=== PATIENT | female | born 1955 | race Caucasian/White ===

== ENCOUNTER 2024-08-24 16:45 | Day surgery (SDC) | payer BC, OTHER, SELFPAY ==
[2024-08-24 16:46] VITALS: BMI 27.1
[2024-08-24 17:35] VITALS: BP 132/83; PULSE 140; RESP 16; TEMP 37.8; O2SAT 95; BMI 26.3
--- NOTE | 2024-08-24 17:41 | EKG_ITS ---
[facility] Test Date: 2024-08-24 Pat Name: VENECIA ALVAREZ Department: Room: - Gender: Female Rigger: : 1955 Requested By: Mini Vazquez ([facility]) Kirsty Order Number: [id number] Reading MD: Mini Vazquez ([facility]) Kirsty Measurements Intervals [place] Rate: 123 P: 111 LA: 128 QRS: 26 QRSD: 80 T: 134 QT: 295 QTc: 424 Interpretive Statements SINUS TACHYCARDIA POSSIBLE ANTERIOR MYOCARDIAL INFARCTION , PROBABLY OLD [30 ms Q WAVE IN V3/V4, OR R < 0.2 mV IN V4] ABNORMAL RHYTHM ECG No previous ECG available for comparison /store/S0/[id number]/ecg/[id number].pdf
--- NOTE | 2024-08-24 17:42 | XR_ITS ---
Examination: Abdomen sonogram, Limited Date and time of exam: August 24, 2024 1854 hours INDICATIONS: Right upper abdominal pain and fever beginning 3 days ago Technique: Real-time campoverde scale transabdominal sonographic images of the upper abdomen obtained. Findings: Multiple gallstones Gallbladder wall 1.1 cm with edema Common bile duct 0.6 cm Pancreatic head 2.5 cm Liver 13.8 cm fatty infiltration Normal hepatopedal portal venous flow Patent IVC IMPRESSION: Cholelithiasis, acute cholecystitis, consider HIDA scan or MRCP follow-up
--- NOTE | 2024-08-24 17:43 | PD.EDRME ---
Rapid Medical Screening Exam RME Arrival date/time: 08/24/24 16:45 68-year-old female presents to the emergency department with complaints of right upper quadrant abdominal pain since Wednesday. +fever today. I have greeted and performed a focused initial assessment of this patient. Initial appropriate labs ordered at this time. A comprehensive ED assessment and evaluation of the patient and analysis of all test and completion of medical decision making process will be conducted by additional ED provider. Chief Complaint: Abdominal Pain Time Seen by Provider: 08/24/24 17:23 Vital signs: Vital Signs Temperature 100.0 F 08/24/24 17:35 Pulse Rate 140 H 08/24/24 17:35 Respiratory Rate 16 08/24/24 17:35 Blood Pressure 132/83 H 08/24/24 17:35 Pulse Oximetry (%) 95 08/24/24 17:35 Oxygen Delivery Method Room Air 08/24/24 17:35
[2024-08-24 18:10] VITALS: TEMP 38.8
[2024-08-24 18:21] LABS: Lactate (Lactic Acid) 1.4 mMol/L (0.4-2.0)
[2024-08-24 18:28] LABS: Basophils # (Auto) 0.1 Thou/mm3 (0.0-0.2); Basophils % (Auto) 0 % (0-2.5); Eosinophils # (Auto) 0.1 Thou/mm3 (0.0-0.5); Eosinophils % (Auto) 0 % (0-10); Hemoglobin 14.2 g/dL (12.0-16.0); Immature Granulocytes % (Auto) 1 % (0-0); Immature Granulocytes Auto 0.09 Thou/mm3 (0.00-0.00); Lymphocytes # (Auto) 1.3 Thou/mm3 (1.0-4.8); Lymphocytes % (Auto) 7 % (10-50); Mean Corpuscular HGB Conc 33.8 g/dl (31.0-37.0); Mean Corpuscular Hemoglobin 30.3 pg (25.0-35.0); Mean Corpuscular Volume 90 fL (80-100); Monocytes # (Auto) 1.1 Thou/mm3 (0.0-0.8); Monocytes % (Auto) 6 % (0-12); Neutrophils # (Auto) 15.4 Thou/mm3 (1.8-7.7); Neutrophils % (Auto) 86 % (37-80); Nucleated Red Blood Cell % 0 /100 WBC (0); Platelet Count 198 Thou/mm3 (140-440); RDW Standard Deviation 44.9 fL (36.4-46.3); Red Blood Count 4.68 Miln/mm3 (4.00-5.20)
[2024-08-24 19:03] LABS: Alanine Aminotransferase 153 U/L (10-49); Albumin, Serum 4.8 gm/dL (3.4-4.8); Albumin/Globulin Ratio 1.5 (1.2-2.2); Alkaline Phosphatase 125 U/L (46-116); Anion Gap 13 (7-16); Aspartate Amino Transferase 87 U/L (0-34); BUN/Creatinine Ratio 15 Ratio (12-20); Bilirubin,Total 1.4 mg/dL (0.3-1.2); Blood Urea Nitrogen 17 mg/dL (9-23); Calcium 11.3 mg/dL (8.3-10.6); Calcium (Corrected) 11.3 mg/dL (8.5-10.1); Carbon Dioxide 21.4 mMol/L (20.0-31.0); Chloride 102 mMol/L (98-107); Creatinine (Component) 1.1 mg/dL (0.6-1.3); Estimated Creatinine Clearance 44.6 mL/min (>60); Globulin 3.1 gm/dL (2.3-3.5); Glucose 127 mg/dL (74-106); Lipase 52 U/L (12-53); Osmolality,Calculated 275 (275-295); Potassium 4.6 mMol/L (3.4-5.1); Procalcitonin 0.69 ng/ml (0.0-0.49); Sodium 136 mMol/L (136-145); Total Protein 7.9 gm/dL (5.7-8.2); Troponin I < 0.020 ng/mL (0.0-0.045); eGFR 55 See Note
[2024-08-24 19:21] VITALS: TEMP 38.8
[2024-08-24] MEDS: ACETAMINOPHEN 500 MG TABLET 1000 MG PO (19:21)
[2024-08-24 20:43] VITALS: BP 116/74; PULSE 102; RESP 16; TEMP 37.2; O2SAT 99
[2024-08-24 20:44] VITALS: TEMP 37.2
[2024-08-24] MEDS: cefTRIAXone 2 GM in SODIUM CHLORIDE 0.9% (Popper) 50 ML IV (21:46)
[2024-08-24] MEDS: SODIUM CHLORIDE 0.9% 1000 ML 1,000 ML 999 ML IV (21:47)
[2024-08-24 23:33] VITALS: BP 129/77; PULSE 77; RESP 18; TEMP 36.9; O2SAT 95
[2024-08-24 23:57] LABS: Collection Type, Urine Clean Catch
[2024-08-25] VITALS (19 sets, daily range): BP systolic 102–149; BP diastolic 61–89; PULSE 64–107; RESP 16–20; TEMP 36.3–37.7; O2SAT 21–100
--- NOTE | 2024-08-25 | XR_ITS ---
MRI abdomen, without contrast. MRCP Date and time of exam: August 25, 2024 at 0757 hours INDICATIONS: Right upper abdominal pain fever beginning 5 days ago Technique: Multiple axial and coronal images of the abdomen have been obtained with the Siemens 1.5T MRI scanner. Images obtained included T1 weighted transverse images, T2-weighted transverse images, T2-weighted transverse images fat-suppressed, T2 weighted haste fat suppressed transverse images, T1 weighted images, in and out of phase images, T2-weighted coronal images, breath hold, T2 weighted haze coronal images as well as T2 weighted coronal thick slab images, MRCP. Findings: No focal liver lesions Multiple gallstones with marked gallbladder wall thickening and edema surrounding the gallbladder Common hepatic duct common bile duct measure 4 mm, no common hepatic or common bile duct stones Spleen is not enlarged No definite edema surrounding the pancreas No hydronephrosis Aorta is not enlarged IMPRESSION: Acute calculus cholecystitis No common hepatic or common bile duct stones
[2024-08-25 00:18] LABS: Bacteria,Urine 4+; Bilirubin,Urine Negative (Negative); Blood,Urine Trace (Negative); Clarity,Urine Turbid (Clear/Hazy); Color,Urine Yellow (Lt Yel-Yel); Glucose, Urine Negative (Negative); Ketones,Urine 1+ (Negative); Leukocyte Esterase,Urine Positive (Negative); Nitrite,Urine Positive (Negative); Protein,Urine 1+ (Neg - Trace); RBC,Urine 6 /hpf (0-3); Specific Gravity,Urine 1.023 (1.001-1.035); Squamous Epithelial Cell,Urine 4 /hpf (0-5); Urobilinogen,Urine Negative mg/dL (0.0-1.0); WBC,Urine 24 /hpf (0-5)
[2024-08-25] MEDS: ACETAMINOPHEN 500 MG TABLET 1000 MG PO (05:12)
--- NOTE | 2024-08-25 05:42 | EDNOTE_ITS ---
ED Abdominal Pain RME/HPI General Chief Complaint: Abdominal Pain Stated complaint: RIGHT ABD PAIN Time seen by provider: 08/24/24 17:23 Arrival date/time: 08/24/24 16:45 RME / HPI RME / HPI narrative: 08/24/24 16:45 68-year-old female presents to the emergency department with complaints of right upper quadrant abdominal pain since Wednesday. +fever today. I have greeted and performed a focused initial assessment of this patient. Init ial appropriate labs ordered at this time. A comprehensive ED assessment and evaluation of the patient and analysis of all test and completion of medical decision making process will be conducted by additional ED provider. Dr. Guy?s Main ED Evaluation: 68yo female presents to the ED for a chief complaint of RUQ pain x Wednesday morning. Patient states her pain has been progressively getting worse. She states she started developing N/V 2 days ago and developed a fever today. She was concerned, so she came in for evaluation. She denies any diarrhea, constipation, dysuria, cough or any other associated symptoms. Denies any previous abdominal surgeries. No known allergies. Related Data Home Medications ?Medication ?Instructions ?Recorded ?Confirmed estradiol 0.01% (0.1 mg/gram) 2 g vaginal DIRECTED 08/26/23 08/26/23 vaginal cream (Estrace) Previous Rx's ?Medication ?Instructions ?Recorded ibuprofen 800 mg tablet 800 mg PO Q8H PRN pain #30 t abs 08/25/24 oxycodone-acetaminophen 5 mg-325 1 tab PO Q6H PRN pain #10 tabs 08/25/24 mg tablet (Endocet) Allergies Allergy/AdvReac Type Severity Reaction Status Date / Time No Known Allergies Allergy Verified 08/24/24 16:46 Review of Systems Review of Systems Systems Reviewed: All systems reviewed, normal except as documented Past Medical History Social History SMOKING STATUS: Never smoker ED Exam Narrative Physical exam: GENERAL APPEARANCE: alert and oriented x 4, well-developed, well-nourished, no acute distress VITALS: All vitals were reviewed and the pulse ox is 95% on room air, which is normal according to my interpretation. HEENT: Normocephalic, atraumatic; pupils equal, round, reactive to light; EOMI; mucous membranes pink, moist; oropharynx clear NECK: Supple LUNGS: CTABL; no wheezes, no rales, no rhonchi HEART: Regular rate, regular rhythm; normal S1, S2; no murmurs ABDOMEN: non distended; normal BS; soft, [id number] RUQ and epigastric tenderness, positive Huynh sign; no guarding, no rebound; no masses, no organomegaly, no hernia BACK: no CVA tenderness EXTREMITIES: atraumatic; no edema NEUROLOGIC: awake; alert and oriented x4; cranial nerves II-XII grossly intact; no focal sensory or motor deficits PSYCHIATRIC: appropriate mood and affect SKIN: warm, dry, normal color; no rashes Course Course Course Narrative: 0050: Sepsis alert initiated. Orders made at this time are congruent with ED Adult Sepsis Order List. Re-evaluation is to be completed. Patient's IVF finished infusing at 2303. Rocephin was given at 2222. Quality Measures Possible source: GI tract/intra-abdominal Blood cultures ordered: yes Antibiotic ordered: Yes Pertinent labs: 08/24/24 17:58 Lactic Acid 1.4 mMol/L (0.4-2.0) Procalcitonin 0.69 H ng/ml (0.0-0.49) sepsis Orders Category Date Time Status Bedside Influenza A&B Antigen Test NOW Care 08/24/24 17:42 Completed COVID-19 Screening Questionnaire NOW Care 08/25/24 09:03 Completed Infection Prevention Specialist STAT Care 08/25/24 05:23 Completed Continuous Pulse Oximetry STAT Care 08/25/24 05:23 Completed Decision to Admit X1 Care 08/25/24 09:03 Completed EKG (ED ONLY) *Do not use* NOW Care 08/24/24 17:42 Completed Insert IV NOW Care 08/24/24 17:47 Completed Insert IV NOW Care 08/25/24 05:23 Completed MRI Screening NOW Care 08/25/24 05:22 Completed NPO STAT Care 08/25/24 05:23 Completed Strict Intake and Output Routine Care 08/25/24 05:23 Ordered Consult to General Surgery Stat Cons 08/25/24 09:03 Ordered EKG (ED Only) Stat Exams 08/24/24 17:41 Draft MR MRCP Stat Exams 08/25/24 Completed US gall bladder Stat Exams 08/24/24 17:42 Completed B-Type Natriuretic Peptide Stat Lab 08/25/24 06:00 Completed Blood Culture (Lab) Stat Lab 08/24/24 17:58 Results CBC Stat Lab 08/24/24 17:58 Completed Comprehensive Metabolic Panel Stat Lab 08/24/24 17:58 Completed LDH (Lactate Dehydrogenase) Stat Lab 08/25/24 06:00 Completed Lactic Acid [Lactate (Lactic Acid)] Stat Lab 08/24/24 17:58 Completed Lipase Stat Lab 08/24/24 17:58 Completed Lipase Stat Lab 08/25/24 06:00 Completed Magnesium Stat Lab 08/25/24 06:00 Completed Partial Thromboplastin Time Stat Lab 08/25/24 06:00 Completed Phosphorous Stat Lab 08/25/24 06:00 Completed Procalcitonin Stat Lab 08/24/24 17:58 Completed Prothrombin Time with INR Stat Lab 08/25/24 06:00 Completed Troponin I Stat Lab 08/24/24 17:58 Completed Urinalysis Stat Lab 08/24/24 23:47 Completed Urinalysis Stat Lab 08/25/24 12:41 Completed Urine Culture Stat Lab 08/25/24 12:41 Received Acetaminophen Tab [Tylenol ES Tab] Med 08/24/24 17:42 Discontinued 1,000 mg PO X1 ONE Acetaminophen Tab [Tylenol ES Tab] Med 08/25/24 05:07 Discontinued 1,000 mg PO X1 ONE HYDROmorphone INJ [Dilaudid Inj] Med 08/25/24 05:45 Discontinued 0.5 mg IVP Q30M PRN Piper/Tazo Inj [Zosyn Inj] 4.5 gm Med 08/25/24 05:23 Discontinued Sodium Chloride 0.9% (Pop) [NS 0.9% mini bag] 100 ml IV X1 Sodium Chloride 0.9% 1000 ml [Ns] 1,000 ml Med 08/24/24 17:47 Discontinued IV 999 mls/hr cefTRIAXone [Rocephin] 2 gm Med 08/24/24 17:48 Discontinued SODIUM CHLORIDE 0.9% (Popper) [Ns 0.9% (P)] 50 ml IV X1 Vital Signs Vital signs: Vital Signs Temperature 100.0 F 08/24/24 17:35 Pulse Rate 140 H 08/24/24 17:35 Respiratory Rate 16 08/24/24 17:35 Blood Pressure 132/83 H 08/24/24 17:35 Pulse Oximetry (%) 95 08/24/24 17:35 Oxygen Delivery Method Room Air 08/24/24 17:35 Abdominal Pain MDM MDM Narrative MDM Narrative:: Scribe Attestation: 08/25/24 Rubi Heaton am scribing for and in the presence of Dr. Guy. Patient data External records reviewed:: [facility] previous records (Per chart review, patient has no previous ED visits or admissions to this facility.) Clinical information provided by:: patient Social determinants that could affect healthcare access:: none Patient has the following chronic illnesses:: none How is presenting disease/condition affected by chronic disease/condition?: no chronic disease Evaluation data The following diagnostics were reviewed and interpreted by me:: lab results, radiology exam(s) and EKG tracing(s) Lab and/or radiology exams considered but not ordered:: none Interpretation Summary: WBC count is elevated at 18.0, Total Bilirubin is 1.4, LFTs are elevated, Troponin is normal, Lipase is normal, Procalcitonin is elevated at 0.69, UA is p ositive for UTI, according to my interpretation. EKG done at 1745, sinus tachycardia, rate of 123, normal axis, no ectopy, no acute ischemia, according to my interpretation. [facility] Report Signed Patient: VENECIA ALVAREZ. Record#: [id number] Birthdate: 1955 Age/Sex: 68 / F [facility] Attending Dr: Ordering Physician: George MuoñzKA[facility]ENTER[facility]ini Raines Date of Service: 08/24/24 Procedure(s): US gall bladder Accession Number(s): [id number] cc: Ciaran Cote MD; John Alicea MD; George MuñozKAISER PERMANENT[facility] CENTERMini Raines~ Examination: Abdomen sonogram, Limited Date and time of exam: August 24, 2024 1854 hours INDICATIONS: Right upper abdominal pain and fever beginning 3 days ago Technique: Real-time campoverde scale transabdominal sonographic images of the upper abdomen obtained. Findings: Multiple gallstones Gallbladder wall 1.1 cm with edema Common bile duct 0.6 cm Pancreatic head 2.5 cm Liver 13.8 cm fatty infiltration Normal hepatopedal portal venous flow Patent IVC IMPRESSION: Cholelithiasis, acute cholecystitis, consider HIDA scan or MRCP follow-up Dictated By: John Alicea MD Signed By: <Electronically signed by John Alicea MD in OV> 08/24/24 4251 Medications / Prescriptions Medications or Prescriptions considered but not ordered:: none Medication administrations:: Medication Administration History Discontinued Medications Acetaminophen (Acetaminophen 500 Mg Tablet) 1,000 mg PO X1 ONE Stop: 08/24/24 17:43 Last Admin: 08/24/24 19:21 Dose: 1,000 mg Documented By: BD Acetaminophen (Acetaminophen 500 Mg Tablet) 1,000 mg PO X1 ONE Stop: 08/25/24 05:08 Last Admin: 08/25/24 05:12 Dose: 1,000 mg Documented By: CVL Acetaminophen (Acetaminophen 325 Mg Tablet) 650 mg PO Q6H PRN PRN Reason: PAIN SCALE 1-3 (mild Stop: 09/24/24 09:03 Bupivacaine HCl (Bupivacaine Mpf 0.5% 10 Ml Vial) Confirm Administered Dose 30 ml .ROUTE .STK-MED ONE Stop: 08/25/24 13:32 Dexamethasone Sodium Phosphate (Dexamethasone Sod Phos Inj 10 Mg/Ml Vial) Confirm Administered Dose 10 mg .ROUTE .STK-MED ONE Stop: 08/25/24 13:18 Fentanyl Citrate (Fentanyl Cit Inj 50 Mcg/Ml Amp 2ml) Confirm Administered Dose 100 mcg .ROUTE .STK-MED ONE Stop: 08/25/24 13:19 Fentanyl Citrate (Fentanyl Cit Inj 50 Mcg/Ml Amp 2ml) 25 mcg IV Q5M PRN; Protocol PRN Reason: PAIN SCALE 7-10 (Severe Stop: 08/25/24 16:10 Last Admin: 08/25/24 15:35 Dose: 25 mcg Documented By: Admin: 08/25/24 15:26 Dose: 25 mcg Documented By: FÉLIX Fentanyl Citrate (Fentanyl Cit Inj 50 Mcg/Ml Amp 2ml) 25 mcg IV Q5M PRN; Protocol PRN Reason: PAIN SCALE 4-6 (Moderate Stop: 08/25/24 16:10 Fentanyl Citrate (Fentanyl Cit Inj 50 Mcg/Ml Amp 2ml) 25 mcg IV Q5M PRN; Protocol PRN Reason: PAIN SCALE 1-3 (mild Stop: 08/25/24 16:10 Hydromorphone HCl (Hydromorphone Inj 2 Mg/Ml Vial) 0.5 mg IVP Q30M PRN PRN Reason: PAIN Stop: 08/30/24 05:44 Last Admin: 08/25/24 09:07 Dose: 0.5 mg Documented By: SHAY Sodium Chloride (Ns) 1,000 mls @ 999 mls/hr IV .Q1H1M ONE Stop: 08/24/24 18:47 Last Infusion: 08/24/24 23:03 Dose: Infused Documented By: Admin: 08/24/24 21:47 Dose: 999 mls/hr Documented By: BD Ceftriaxone Sodium 2 gm/ (Sodium Chloride) 50 mls @ 100 mls/hr IV X1 ONE Stop: 08/24/24 18:17 Last Infusion: 08/24/24 22:22 Dose: Infused Documented By: Admin: 08/24/24 21:46 Dose: 100 mls/hr Documented By: BD Piperacillin Sod/Tazobactam (Sod 4.5 gm/ Sodium Chloride) 100 mls @ 200 mls/hr IV X1 ONE Stop: 08/25/24 05:52 Last Infusion: 08/25/24 06:22 Dose: Infused Documented By: Admin: 08/25/24 05:51 Dose: 200 mls/hr Documented By: CVL Sodium Chloride (Ns) 1,000 mls @ 125 mls/hr IV .Q8H JEREMY Stop: 09/24/24 09:14 Last Admin: 08/25/24 09:34 Dose: 125 mls/hr Documented By: SHAY Potassium Phosphate (Pot Phos 15 Mmol In Ns 250 Ml) 15 mmol in 250 mls @ 62.5 mls/hr IV Q4H JEREMY Stop: 08/25/24 20:15 Piperacillin/Tazobactam/Dextrose (Zosyn) 3.375 gm in 50 mls @ 100 mls/hr IV X1 ONE Stop: 08/25/24 12:46 Last Infusion: 08/25/24 13:02 Dose: Infused Documented By: Admin: 08/25/24 12:30 Dose: 100 mls/hr Documented By: HOMAR Acetaminophen (Ofirmev Inj) Confirm Administered Dose 100 mls @ ud IV .STK-MED ONE Stop: 08/25/24 14:05 Ketorolac Tromethamine (Ketorolac Inj 30 Mg/Ml Vial) 15 mg IVP Q6H PRN PRN Reason: PAIN SCALE 4-6 (Moderate Stop: 08/30/24 09:03 Last Admin: 08/25/24 15:28 Dose: 15 mg Documented By: FÉLIX Midazolam HCl (Midazolam Inj 1 Mg/Ml Vial 2 Ml) Confirm Administered Dose 2 mg .ROUTE .STK-MED ONE Stop: 08/25/24 13:19 Ondansetron HCl (Ondansetron Inj 2 Mg/Ml Inj 2 Ml) 4 mg IV X1 ONE; Protocol Stop: 08/25/24 09:14 Last Admin: 08/25/24 09:34 Dose: 4 mg Documented By: SHAY Ondansetron HCl (Ondansetron Inj 2 Mg/Ml Inj 2 Ml) Confirm Administered Dose 4 mg .ROUTE .STK-MED ONE Stop: 08/25/24 13:18 Ondansetron HCl (Ondansetron Inj 2 Mg/Ml Inj 2 Ml) 4 mg IV X1 ONE Stop: 08/25/24 14:11 Last Admin: 08/25/24 15:38 Dose: 4 mg Documented By: FÉLIX Propofol (Propofol Inj 10 Mg/Ml Vial 20 Ml) Confirm Administered Dose 200 mg IV .STK-MED ONE Stop: 08/25/24 13:19 Rocuronium [place] (Rocuronium Inj 10 Mg/Ml Vial 10 Ml) Confirm Administered Dose 100 mg .ROUTE .STK-MED ONE Stop: 08/25/24 13:18 Simethicone (Simethicone 80 Mg Chew) 80 mg PO X1 ONE Stop: 08/25/24 16:01 Last Admin: 08/25/24 16:07 Dose: 80 mg Documented By: FÉLIX Sugammadex Sodium (Sugammadex Inj 100 Mg/Ml 2ml Vial) Confirm Administered Dose 200 mg .ROUTE .STK-MED ONE Stop: 08/25/24 14:40 see above Consultations Consultation(s) initiated? (list below): No Diagnosis Differential diagnosis abdominal pain: other (cholelithiasis, choledocolithiasis, cholecystitis, pancreatitis) Most likely diagnosis given after review of the tests above:: see clinical impression below Admission Indicated Admission indicated?: not indicated Admission Request Was there a request for admission?: No Disposition Plan Disposition Plan: other (specify) (Signed out to Dr. Jeong at 0600 pending MRCP in the morning.) Critical Care Time Critical Care Time Critical Care Time: Yes Total Critical Care Time (min.): 35 Attestation: The high probability of sudden, clinically significant deterioration in the patient?s condition required the highest level of my preparedness to intervene urgently. The services I provided to this patient were to treat and/or prevent clinically significant deterioration. Services included the following: chart data review, reviewing nursing notes and/or old charts, documentation time, wealth management consultant collaboration regarding findings and treatment options, medication orders and management, direct patient care, vital sign assessments and ordering, interpreting and reviewing diagnostic studies and lab tests. Aggregate critical care time includes only time during which I was engaged in work directly related to the patient?s care, as described above, whether at bedside or elsewhere in the Emergency Department. It did not include time spent performing other reported procedures or the services of residents, students, nurses or physician assistants. Discharge Plan Plan Patient Disposition: Admit Acute Care w/in Hospital Problem List Clinical Impression: Acute cholecystitis Patient/Caregiver Discharge Instructions Other Activity Instructions:: Avoid lifting objects greater than 10 pounds for 6 weeks Your incisions have skin glue on them which will fall off on its own and does not need to be replaced Your stitches will not need to be removed You may resume showering in 2 days, on 08/27/2024 It is okay to get incisions wet, pat them dry after Avoid bathing or swimming for 2 weeks If you develop worsening pain, nausea/vomiting, fever or jaundice, please seek care in ER
[2024-08-25] MEDS: PIPER/TAZO INJ 4.5 GM in SODIUM CHLORIDE 0.9% (POP) 100 ML IV (05:51)
--- NOTE | 2024-08-25 06:14 | PD.EDADDENDU ---
Emergency Room Addendum Addendum Narrative: 0600: Care assumed from Dr. Guy, the previous shift emergency physician. Past medical, surgical, social and family history reviewed. Vitals and home medications reviewed. I will assume the care of the patient at this time, pending MRCP and final disposition. Please refer to the emergency department record for history and examination from initial visit.? Physical exam by me shows patient under no acute distress at this time. She had very mild right upper quadrant tenderness on deep palpation. No Huynh tenderness. 68 year old female presents to the Emergency Department with complaints of epigastric and right upper quadrant pain x1 week, she has been going to urgent care. However, yesterday she had a fever and that is why she came in for evaluation. Here, it was 101.8 F. 0903: Discussed test HPI, PMHx, lab, radiology results and/or management with Dr. Islas. Will admit the patient for surgery. RADIOLOGY Procedure(s): MR MRCP Accession Number(s): [id number] cc: Ciaran Cote MD; John Alicea MD; Cullen Guy MD~ MRI abdomen, without contrast. MRCP Date and time of exam: August 25, 2024 at 0757 hours INDICATIONS: Right upper abdominal pain fever beginning 5 days ago Technique: Multiple axial and coronal images of the abdomen have been obtained with the Siemens 1.5T MRI scanner. Images obtained included T1 weighted transverse images, T2-weighted transverse images, T2-weighted transverse images fat-suppressed, T2 weighted haste fat suppressed transverse images, T1 weighted images, in and out of phase images, T2-weighted coronal images, breath hold, T2 weighted haze coronal images as well as T2 weighted coronal thick slab images, MRCP. Findings: No focal liver lesions Multiple gallstones with marked gallbladder wall thickening and edema surrounding the gallbladder Common hepatic duct common bile duct measure 4 mm, no common hepatic or common bile duct stones Spleen is not enlarged No definite edema surrounding the pancreas No hydronephrosis Aorta is not enlarged IMPRESSION: Acute calculus cholecystitis No common hepatic or common bile duct stones Dictated By: John Alicea MD
[2024-08-25 06:20] LABS: Partial Thromboplastin Time 30.3 Seconds (22.0-36.0); Prothrombin Time 10.8 Seconds (9.0-12.2)
[2024-08-25 06:22] LABS: B-Type Natriuretic Peptide 30 pg/mL (0-100)
[2024-08-25 06:28] LABS: LDH (Lactate Dehydrogenase) 180 U/L (120-246); Lipase 47 U/L (12-53); Magnesium 1.7 mg/dL (1.6-2.6); Phosphorous 1.9 mg/dL (2.4-5.1)
[2024-08-25] MEDS: HYDROmorphone INJ 2 MG/ML VIAL 0.5 MG IVP (09:07)
[2024-08-25] MEDS: ONDANSETRON INJ 2 MG/ML INJ 2 ML 4 MG IV ×2 (09:34→15:38)
[2024-08-25] MEDS: SODIUM CHLORIDE 0.9% 1000 ML 1,000 ML 125 ML IV (09:34)
--- NOTE | 2024-08-25 09:59 | PC.CC ---
Patient is a 68 year-old female who presents to the hospital for acute cholecystitis. Delmy ADAME made wcfv-fp-jain contact with patient. ASW introduced self, role, and reason for visit. Patient appeared alert and oriented to self, location, and situation. Patient was pleasant and engaged in initial assessment. Patient confirmed information on demographics and reports to living at home with her , Julio Cesar Mayer . Patient reports that in the event she is unable to make her own medical decisions her would be her medical decision maker. Patient reports at home she ambulates independently and completes her own ADLs. Patient does not use any DME at home. Primary care provider is Ciaran Cote and uses [email or web address]. Upon discharge patient plans to return back home. business services officer to follow up with any discharge needs.
--- NOTE | 2024-08-25 11:51 | ESHP_ITS ---
HPI Date of Admission 08/25/24 09:04 HPI 68F presenting with abdominal pain and fever. Patient reports pain first began 4 days ago, in the epigastrium for which she went to urgent care. Pain initially abated but then returned and was more severe, in the right upper quadrant, associated with mild nausea, mild diarrhea and fever here up to 101.8. Patient is not been eating much due to the pain and denies history of similar pain. She denies any other symptoms such as shortness of breath, cough, dysuria or sick contacts. Workup is consistent with acute cholecystitis PMH: HTN, HLD PSH: Knee surgery Meds: No antiplatelet or anticoagulation Allergies: NKDA Social history: Non-smoker Family history: Brother of pancreatic cancer, sister had leukemia Review of Systems Review of Systems ROS Unobtainable: All systems reviewed & no additional complaints except as documented Meds Home Medications and Allergies Home Medications ?Medication ?Instructions ?Recorded ?Confirmed ?Type estradiol 0.01% (0.1 mg/gram) 2 g vaginal DIRECTED 08/26/23 08/26/23 History vaginal cream (Estrace) Allergies Allergy/AdvReac Type Severity Reaction Status Date / Time No Known Allergies Allergy Verified 08/24/24 16:46 Exam Vital Signs Temp Pulse Resp BP Pulse Ox O2 Del Method 97.7 F 81 17 102/69 95 Room Air 08/25/24 11:00 08/25/24 11:00 08/25/24 11:00 08/25/24 11:00 08/25/24 11:00 08/25/24 09:38 Constitutional Constitutional: no acute distress Routine Respiratory Exam Respiratory: Present no resp distress Routine Abdominal Exam Abdominal: Present soft and tenderness (Moderate right upper quadrant tend erness, negative Huynh sign); Absent distended, rebound, guarding or firm Results Results: Laboratory Laboratory results: results reviewed Results: Imaging Imaging narrative: MRCP reviewed US - abdomen: report reviewed Assessment & Plan Plan 68F presenting with signs and symptoms of acute cholecystitis. I explained benefits/risks of surgery including need for conversion to open, injury to the main bile duct requiring major reconstructive surgery which would need to be done at a tertiary center, infection potentially requiring drainage and/or ERCP, bleeding, hernia and postoperative diarrhea. All questions were answered and patient is agreeable to proceeding Quality Measures Quality Measures sepsis Current suspected stage: ruled out Possible source: GI tract/intra- abdominal Blood cultures ordered: yes Antibiotic ordered: Yes Advance care planning discussed with:: other
[2024-08-25] MEDS: PIPER/TAZO 3.375 GM PREMIX 3.375 GM/50 ML BAG IV (12:30)
[2024-08-25 12:43] LABS: Collection Type, Urine Clean Catch
[2024-08-25 12:55] LABS: Bacteria,Urine Rare; Bilirubin,Urine Negative (Negative); Blood,Urine Trace (Negative); Clarity,Urine Clear (Clear/Hazy); Color,Urine Yellow (Lt Yel-Yel); Glucose, Urine Negative (Negative); Ketones,Urine Negative (Negative); Leukocyte Esterase,Urine Positive (Negative); Nitrite,Urine Negative (Negative); Protein,Urine Trace (Neg - Trace); RBC,Urine 5 /hpf (0-3); Specific Gravity,Urine 1.023 (1.001-1.035); Squamous Epithelial Cell,Urine 2 /hpf (0-5); Urobilinogen,Urine Negative mg/dL (0.0-1.0); WBC,Urine 19 /hpf (0-5)
--- NOTE | 2024-08-25 15:07 | PD.SUROPNT ---
Date of Procedure 08/25/24 Pre Op Diagnosis Acute cholecystitis Post Op Diagnosis Same Procedure Laparoscopic cholecystectomy Findings Acutely inflamed, thickened gallbladder with large gallstones Procedure Description After discussion of risks and benefits, patient was brought to the operating room, SCDs were placed and general anesthesia was induced. She had already received preoperative antibiotics and was prepped and draped in the usual sterile fashion. After timeout a supraumbilical incision was made with a #15 blade and the skin was elevated with towel clamps while a Veress needle was placed with the incision. Proper positioning was confirmed with a drop test and the abdomen was insufflated to 15 mmHg. At that point the Veress needle was exchanged for a 5 mm camera using a Visiport technique. There were no signs of injury from the point of entry. 3 additional ports were placed under direct vision, one 12 mm at the epigastrium, one 5 mm right subcostal and one 5 mm right anterior axillary line. Patient was placed in reverse Trendelenburg. The gallbladder was noted to be firm and adherent to the adjacent omentum. It was aspirated with return of thick bile, approximately 10 cc. The fundus of the gallbladder was then grasped retracted cephalad and the infundibulum was grasped and retracted laterally. There were dense adhesions and fat surrounding the base of the gallbladder but ultimately I did achieve the critical view of safety using blunt dissection and the cystic duct and cystic artery were clipped and transected in the usual fashion. The gallbladder was removed from the gallbladder bed using electrocautery. The specimen was removed in an Endo Catch bag via the epigastric port. Hemostasis of the gallbladder bed was achieved with electrocautery and reinforced with Surgicel powder. The epigastric fascia was closed with two 0 Vicryl sutures using a Marcellus-Rafia. Pneumoperitoneum was released and ports were removed under direct vision. Incisions were irrigated and infiltrated with half percent Marcaine for total of 30 cc. Incisions were closed with 4-0 Monocryl and reinforced with Dermabond Pathology / specimen Other (Gallbladder) Estimated Blood Loss 50 Surgeon Sandra Islas MD Surgical Staff Operation Date: 08/25/24 12:15 Case Staff Anesthesiologist: Mega Vang RN First Assistant: Shelley Smiley
--- NOTE | 2024-08-25 15:11 | PD.SURDS ---
Planned Discharge Date 08/25/24 DS: Providers Provider Date of admission: 08/25/24 09:04 Primary care physician: Ciaran Cote MD Admitting Provider: Sandra Islas MD Attending Provider on Admission: Sandra Islas MD Consults: 08/25/24 09:03 Consult to General Surgery Stat Comment: Consulting Provider: Sandra Islas Attending Provider on DC: Sandra Islas MD Discharging Provider: Sandra Islas MD Diagnosis Discharge Diagnosis (1) Acute cholecystitis: Status: Acute Problem List Completed Was Problem List Reviewed/Reconciled?: Yes Exam Vital Signs Temp Pulse Resp BP Pulse Ox O2 Del Method 97.7 F 81 17 102/69 95 Room Air 08/25/24 11:00 08/25/24 11:00 08/25/24 11:00 08/25/24 11:00 08/25/24 11:00 08/25/24 09:38 Discharge Plan Plan Patient Disposition: HOME (Self Care) Prescriptions/Referrals Prescriptions/Med Rec: New oxycodone-acetaminophen [Endocet] 5-325 mg tablet 1 tab PO Q6H MDD 6 tabs PRN (Reason: pain) Qty: 10 0RF Rx Instructions: Take as needed every 4-6 hours for severe pain ibuprofen 800 mg tablet 800 mg PO Q8H PRN (Reason: pain) Qty: 30 0RF No Action estradiol [Estrace] 0.01 % (0.1 mg/gram) cream 2 g vaginal DIRECTED Patient Comments: twice a week Referrals: Ciaran Cote MD [Primary Care Provider] - (You will receive a phone call to confirm a follow-up appointment with me in 3 weeks) Patient/Caregiver Discharge Instructions Other Discharge Activity Instructions:: Avoid lifting objects greater than 10 pounds for 6 weeks Your incisions have skin glue on them which will fall off on its own and does not need to be replaced Your stitches will not need to be removed You may resume showering in 2 days, on 08/27/2024 It is okay to get incisions wet, pat them dry after Avoid bathing or swimming for 2 weeks If you develop worsening pain, nausea/vomiting, fever or jaundice, please seek care in ER Education Materials: Cholecystectomy Laparoscopic Dc, Preventing Surgical Site Infections Print Language: Honduran Stand Alone Forms: Elva Award Info., Patient Portal Info Letter Discharge Order Discharge Orders: Discharge (Routine); Ordered 08/25/24 Ordered By: Sandra Islas Results Results: Laboratory Laboratory results: results reviewed Results: Imaging Imaging narrative: MRCP reviewed US - abdomen: report reviewed Procedures Procedures Laparoscopic cholecystectomy
--- NOTE | 2024-08-25 15:12 | SUR.PHASEI ---
1512: Pt. arrived with oral airway in place, vitals stable, breathing unlabored, no signs of distress, x4 dermabond sites to ABD CDI, no active bleed noted, report received from MD Blanc and Nisreen VALENTINE.
[2024-08-25] MEDS: fentaNYL CIT INJ 50 mCg/ML AMP 2ML 25 MCG IV ×2 (15:26→15:35)
[2024-08-25] MEDS: KETOROLAC INJ 30 MG/ML VIAL 15 MG IVP (15:28)
[2024-08-25] MEDS: SIMETHICONE 80 MG CHEW PO (16:07)
--- NOTE | 2024-08-25 17:00 | SUR.PHASEII ---
1700: Pt. AAOx4, vitals stable, breathing unlabored, complaint of slight right shoulder pain, educated pt. on gas pain and pt. verbalized understanding. x4 dermabond sites to ABD CDI, no active bleed noted, pt. tolerated sips of 7up well, pt. ambulated to wheelchair with steady gait and no assist, no complications. Gave discharge instructions to the pt. and her ride, both verbalized understanding and had no further questions. Pt. left with all personal belongings.
== END 2024-08-25 17:00 | disposition home or self-care (01) ==
LOC: SERX 08-25 07:14 → SERHOLD 08-25 09:16 → S2EX 08-30 08:22
PROVIDERS: Emergency Medicine; Nurse Practitioner Primary Care; Emergency Provider Emergency Medicine; PCP Internal Medicine; Visit Provider Surgery
PROC: 0FT44ZZ Resection of Gallbladder, Percutaneous Endoscopic Approach (ICD-10-PCS; CPT 47562; principal; 2024-08-25 12:00)
DX: K80.12 Calculus of gallbladder with acute and chronic cholecystitis without obstruction (principal); K82.A1 Gangrene of gallbladder in cholecystitis; I10 Essential (primary) hypertension; E78.5 Hyperlipidemia, unspecified
CPT/HCPCS: 47562; 36415; 76705; 80053; 81001; 83605; 83615; 83690; 83735; 83880; 84100; 84145; 84484; 85025; 85610; 85730; 87040; 87086; 87400; 93005; 96365; 96367; 96375; 99291; A4217; A4649; J0131; J0696; J1100; J1885; J2250; J2405; J2543; J2704; J3010; J3490; J7030; J7050; S8037; 74181; A9270

== ENCOUNTER 2024-09-11 14:07 | Outpatient (AMB) | payer BC, OTHER, SELFPAY ==
[2024-09-11 14:19] VITALS: BP 121/78; PULSE 80; RESP 19; TEMP 36.3; O2SAT 93; BMI 25.4
--- NOTE | 2024-09-11 14:19 | GSCOFFNT_ITS ---
Vital Signs - [facility] 09/11/24 14:19 Height 1.57 m Height Method Stated Weight 62.766 kg Weight Measurement Method Standing Scale BMI 25.4 BP 121/78 Blood Pressure Source Automatic Cuff Blood Pressure Location Left Upper Arm Position Sitting Respiration 19 Pulse 80 Pulse Source Monitor Temp 97.4 F Temp Source Temporal Artery Scan Pulse Oximetry (%) 93 L Oxygen Delivery Method Room Air Med/Allergies Allergies & Medications Allergies No Known Allergies Allergy (Verified 09/11/24 14:23) Medication Reconciliation estradiol 0.01% (0.1 mg/gram) vaginal cream (Estrace) 2 g vaginal DIRECTED 08/26/23 [History Confirmed 09/11/24] ibuprofen 800 mg tablet 800 mg PO Q8H PRN pain #30 tabs 08/25/24 [Rx Confirmed 09/11/24] oxycodone-acetaminophen 5 mg-325 mg tablet (Endocet) 1 tab PO Q6H PRN pain #10 tabs 08/25/24 [Rx Confirmed 09/11/24] cephalexin 500 mg capsule 500 mg PO BID 09/11/24 [History Confirmed 09/11/24] mupirocin 2 % topical ointment 1 applic topical BID 09/11/24 [History Confirmed 09/11/24] MA Intake Visit Data Collection New Patient or Established: Established Patient (seen at [facility] within 3 years) Seen by Clinical Staff ONLY (RN/MA): No Reason for Visit:: lab maryuri f/u Pain Present Currently: No PCP or OBGYN visit in last 3 months: Yes Hx Now: No Do You Feel Safe at Home: Yes Authorities Contacted: N/A Smoking Status Smoking Status: Never smoker Immunization / Flu Flu Vaccine in the Last 12 Months: No Flu Vaccine Exclusion Criteria: No Exclusion Criteria Past Medical History Past Medical History NEUROLOGIC: Negative Seizures CARDIAC: Positive Cardiac Disorders, Hypercholesterolemia and Hypertension; Negative Congestive Heart Failure RESPIRATORY: Negative Chronic Obstructive Pulmonary Disease (COPD) GENITOURINARY: Negative Renal Disease ENDOCRINE: Negative Diabetes Mellitus Type 1 or Diabetes Mellitus Type 2 OTHER HISTORY: Negative Blood Transfusions or Anesthesia Reactions Social History SMOKING STATUS: Smoking status: Never smoker LIVES WITH: Lives With: Spouse HPI HPI Narrative 69F s/p lap maryuri / here for planned follow up. Pt reports feeling well overall; she noticed some bleeding from her epigastric incision which improved after she stopped wearing a bra, but also recently noted that the left lateral portion of the incision is superficially dehisced and she was prescribed keflex and mupirocin yesterday. Otherwise pt feels very well with no pain, no nausea, she is eating well and having regular BMs without any diarrhea or constipation, denies any fever or jaundice ROS Review of Systems Systems Reviewed: All systems reviewed, normal except as documented Objective/Exam General General Appearance: alert, cooperative and well groomed Resp Respiratory exam: Absent respiratory distress Abdominal Abdominal exam: Present soft and incision (epigastric incision with superficial dehiscence at the left lateral aspect containing minimal fibrinous tissue, no surrounding erythema, no fluctuance or tendernes. remaining incisions c/d/i); Absent distention or tenderness Results Pathology showing gangrenous cholecystitis Assessment & Plan Diagnosis / Problem List (1) Acute cholecystitis: Status: Acute Assessment & Plan: 69F s/p lap maryuri 08/25, with superficial dehiscence of epigastric incision but overall doing well with no signs of systemic infection Plan: Avoid strenuous activity including lifting objects >10lb for 6 weeks F/u as needed Advanced Care Planning Advance care planning discussed with:: patient Office Procedures GNS Level of Care Nursing/Assessment Patient Status: Established Patient Nursing Assessment/Reassesment: Medication Reconciliation, Update PMH in EMR and Vital Signs Coordination of Care: Complex Care and Chronic Disease 1-5, Consent,records obtained, informed consent, Education Simp Pt/Fam, Results/Orders obtained and Staff clarify orders Established Patient Charge Established Patient Point Assignment: 90 Established Patient Point Charge: EP Level 3 (80-115) Patient Portal Questionaires Social History Tobacco History Smoking Status: Never smoker Domestic Abuse History Do You Feel Safe at Home: Yes Review of Systems Report any current symptoms Only answer those that you have currently: Past Medical History Past Medical History Have you ever been diagnosed with any of the following: Neurological Problems Seizures: No Cardiology Problems Hypercholesterolemia: Yes Congestive Heart Failure: No Hypertension: Yes Respiratory Problems Chronic Obstructive Pulmonary Disease (COPD): No Genital/Urinary Problems Renal Disease: No Endocrine Problems Diabetes Mellitus Type 1: No Diabetes Mellitus Type 2: No Other Problems Blood Transfusions: No Anesthesia Reactions: No
== END 2024-09-11 14:51 | disposition home or self-care (01) ==
PROVIDERS: PCP Internal Medicine; Referring Provider Internal Medicine; Supervising Provider Surgery; Visit Provider Surgery
DX: K81.0 Acute cholecystitis (principal); K82.A1 Gangrene of gallbladder in cholecystitis
CPT/HCPCS: 99213; G0463

== ENCOUNTER → 2024-10-18 | Outpatient (CLI) | payer BC, OTHER, SELFPAY ==
--- NOTE | 2024-10-18 08:15 | XR_ITS ---
Examination: Screening digital mammography, bilateral Computer aided detection 3-D breast Tomosynthesis, bilateral Date and time of exam: October 10, 2024 0810 hours No priors available for comparison Indication: Screening Technique: Nonmagnified MLO, CC views of the breasts to been obtained, reconstructed from 3-D Tomosynthesis images. R2 computer aided detection program utilized for evaluation of suspicious masses and/or abnormal calcifications. 3-D Tomosynthesis images obtained. Findings: The breasts are heterogeneously dense, which may obscure small masses Prominent bilateral axillary lymph nodes 12 mm focal asymmetry lower inner right breast Impression: BI-RADS Category 0: Incomplete: Need additional imaging evaluation Recommend follow-up spot tomographic views of 12 mm focal asymmetry lower inner right breast as well as bilateral breast sonography to complete the workup
== END | disposition home or self-care (01) ==
LOC: CDIM 07:49
PROVIDERS: PCP Nurse Practitioner Primary Care; Referring Provider Nurse Practitioner Primary Care; Visit Provider Nurse Practitioner Primary Care
DX: Z12.31 Encounter for screening mammogram for malignant neoplasm of breast (principal); N64.89 Other specified disorders of breast
CPT/HCPCS: 77063; 77067

== ENCOUNTER → 2024-12-20 | Outpatient (CLI) | payer BC, OTHER, SELFPAY ==
--- NOTE | 2024-12-20 14:00 | XR_ITS ---
Examination: Breast ultrasound complete, bilateral Date and time of exam: December 20, 2024 1424 hours INDICATIONS: Mammogram October 18, 2024 12 mm focal asymmetry lower inner right breast Technique: Real-time grayscale ultrasonographic imaging bilateral breasts, including all 4 quadrants as well as nipple retroareolar and axillary regions. Findings: Sonographic images right breast No cystic or solid mass 3.2 cm vascular right axillary lymph node Sonographic images left breast No cystic or solid masses IMPRESSION: BI-RADS Category 3: Probably benign findings One additional 6 month right breast sonogram follow-up is needed to document stability of vascular right axillary lymph node described above
== END | disposition home or self-care (01) ==
PROVIDERS: PCP Nurse Practitioner Primary Care; Referring Provider Nurse Practitioner Primary Care; Visit Provider Nurse Practitioner Primary Care
DX: R92.8 Other abnormal and inconclusive findings on diagnostic imaging of breast (principal)
CPT/HCPCS: 76641